=== PATIENT | female | born 1995 | race Caucasian/White ===

== ENCOUNTER 2017-06-25 16:49 | Emergency (ER) | payer OTHER ==
[2017-06-25 17:15] VITALS: BP 128/64
--- NOTE | 2017-06-25 17:30 | UC ---
UC General HPI - HPI Summary HPI Summary: sore throat for 2 days and now swollen glands. no uri or fever - History of Current Complaint Chief Complaint: UCGeneralIllness Stated Complaint: [place]ANDS Time Seen by Provider: 06/25/17 17:24 Hx Obtained From: Patient Hx Last Menstrual Period: 06/12/17 Onset/Duration: Gradual Onset Timing: Constant Pain Intensity: 5 - Allergy/Home Medications Allergies/Adverse Reactions: Allergies Allergy/AdvReac Type Severity Reaction Status Date / Time No Known Allergies Allergy Verified 06/25/17 17:15 Home Medications: Home Medications Desogestrel-Ethinyl Estradiol [Caziant 28 Day Tablet] 1 each PO DAILY 06/25/17 [ History Confirmed 06/25/17] Linaclotide [Linzess] 72 mcg PO DAILY 06/25/17 [History Confirmed 06/25/17] Omeprazole CAP* [Prilosec CAP* 20 MG] 20 mg PO DAILY 06/25/17 [History Confirmed 06/25/17] PMH/Surg Hx/FS Hx/Imm Hx - Additional Past Medical History Additional PMH: IBS GI/ History: Gastroesophageal Reflux - Surgical History Surgical History: Yes Surgery Procedure, Year, and Place: right ACL and meniscus - Family History Known Family History: Positive: None - Social History Occupation: Student Lives: Dormitory/Roommates Alcohol Use: Occasionally Substance Use Type: None Smoking Status (MU): Never Smoked Tobacco - Immunization History Vaccination Up to Date: Yes Review of Systems Constitutional: Negative Skin: Negative Eyes: Negative ENT: Sore Throat Respiratory: Negative Cardiovascular: Negative Gastrointestinal: Negative Genitourinary: Negative Motor: Negative Neurovascular: Negative Musculoskeletal: Negative Neurological: Negative Psychological: Negative Is Patient Immunocompromised?: No All Other Systems Reviewed And Are Negative: Yes Physical Exam Triage Information Reviewed: Yes Appearance: Well-Appearing Vital Signs: Initial Vital Signs Temp 98.7 F 06/25/17 17:11 Pulse 86 06/25/17 17:11 Resp 16 06/25/17 17:11 BP 128/64 06/25/17 17:11 Pulse Ox 100 06/25/17 17:11 Vital Signs Reviewed: Yes Eyes: Positive: Conjunctiva Clear ENT: Positive: Pharyngeal erythema, TMs normal, Uvula midline. Negative: Nasal congestion, Nasal drainage, Tonsillar swelling, Tonsillar exudate, Trismus, Muffled voice, Hoarse voice Neck: Positive: Supple, Enlarged Nodes @ - Peritonsilar with tenderness Respiratory: Positive: Lungs clear, Normal breath sounds Cardiovascular: Positive: RRR, No Murmur Abdomen Description: Positive: Nontender, No Organomegaly, Soft Bowel Sounds: Positive: Present Musculoskeletal: Positive: ROM Intact Neurological: Positive: Alert Psychological: Positive: Age Appropriate Behavior Skin Exam: Normal Diagnostics - Laboratory Diagnostic Studies Completed/Ordered: rapid strep=+ Course/Dx - Course Course Of Treatment: STREP THROAT, NO CONCERN FOR ABSCESS - Differential Dx - Multi-Symptom Provider Diagnoses: STREP THROAT Discharge - Sign-Out/Discharge Documenting (check all that apply): Discharge - Discharge Plan Condition: Stable Disposition: HOME Prescriptions: Amoxicillin PO (*) [Amoxicillin 500 MG CAP*] 500 mg PO Q12H #20 cap Patient Education Materials: Strep Throat (DC) Additional Instructions: FOLLOW UP [place] [facility] IN 7 DAYS FOR RECHECK OR [place] IF WORSE - Billing Disposition and Condition Condition: STABLE Disposition: HOME
[2017-06-25] MEDS ORDERED: Amoxicillin PO (*) 500 MG CAP PO ONE (17:45)
== END 2017-06-25 17:51 | disposition home or self-care (01) ==
LOC: UCCORT 16:49
DX: J02.0 Streptococcal pharyngitis (principal)
CPT/HCPCS: 87651; 99202; A9270-GY; G0463